=== PATIENT | male | born 1985 | race Caucasian/White ===

== ENCOUNTER 2020-03-06 00:41 | Emergency (ER) | payer OTHER, SELFPAY ==
--- NOTE | ~2020-03-06 | CT_ITS ---
EXAMINATION: CT abdomen pelvis w con DATE: 03/06/2020 01:37 INDICATION: Right lower quadrant abdominal pain, abdominal guarding TECHNIQUE: Computed tomography (CT) of the abdomen and pelvis was performed with 100 cc Omnipaque 350 intravenous contrast. Automated exposure control and iterative reconstruction technique were employe d. Exam dose: 402.52 mGy-cm total exam DLP. COMPARISON: None. FINDINGS: The lung bases are clear. Normal heart size. No pericardial or pleural effusion. The liver, gallbladder, bile ducts, spleen, pancreas, pancreatic duct and adrenal glands as well as k idneys appear normal. Normal caliber of the abdominal aorta. No intraperitoneal or retroperitoneal or pelvic mass lesion or adenopathy or ascites. Normal appendix. No bowel obstruction or intraperitonea l free air. Small fat-containing a buckle hernia. A transitional lumbosacral vertebra is noted. There is mild retrolisthesis at L4-5. IMPRESSION: Normal appendix Reviewed, dictated and finalized at [facility]. with 100 cc Omnipaque 350 Reviewed, dictated and finalized at [facility]. IMPRESSION: Normal appendix
--- NOTE | 2020-03-06 00:45 | ED.ABDPAIN ---
HPI - Abdominal Pain General Chief Complaint: Abdominal Pain Stated Complaint: RLQ PAIN Time Seen by Provider: 03/06/20 00:43 Source: patient and RN notes reviewed Mode of arrival: other Limitations: no limitations History of Present Illness HPI narrative: Pt is a 34 y/o male who presents to the ED with c/o severe RLQ abdominal pain that began 45 minutes ago after getting home from work. 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 Pt states that he feels as if his abdomen is going to explode. Pt is taking Cephalexin. Pt denies any alleviating factors. Pt also reports dysuria, left testicular pain, penile pain, and urinary retention, but denies hematuria, fever, and vomiting. MD elicited complaint: abdominal pain Pertinent past history: none Onset (ago): minute(s) (45) Pain Consistency: constant Location: RLQ Severity: severe Radiation: none Migration to: no migration Relieving factors: nothing Associated symptoms: dysuria and other (left testicular pain, penile pain, urinary retention) Related Data Allergies Allergy/AdvReac Type Severity Reaction Status Date / Time No Known Allergies Allergy Mild Verified 11/11/11 07:23 Review of Systems Review of Systems: Narrative: CONSTITUTIONAL: Denies fever. HEENT: Denies congestion CV: Denies chest pain RESP: Denies cough,dyspnea GASTROINTESTINAL: Reports RLQ abdominal pain. Denies vomiting. GENITOURINARY: Denies dysuria, left testicular pain, penile pain, and urinary retention. Also denies hematuria. Denies penile discharge. EXTREMIES: Denies injury or arthralgia SKIN: Denies rash All systems reviewed & are unremarkable except as noted in HPI and below PMFSH Past Medical History Medical History (Updated 03/06/20 @ 02:35 by Emily Chappell MD) Depression Seizures as child Surgical History Surgical History (Updated 03/06/20 @ 00:46 by Bibi Castillo) Surgical history unknown Social History Social History (Updated 03/06/20 @ 00:46 by Bibi Castillo) Smoking packs per day: 1 Smoking cigarettes per day: 20.0 Smoking status: Current every day smoker Tobacco type: cigarettes Gender identity (if verbalized by the patient): Male Exam Narrative: Exam Narrative: CONSTITUTIONAL: Awake, alert, conversant, tearful, screaming HEAD: Normocephalic, atraumatic. EYES: EOMI, conjunctiva clear ENT: Nares patent. Mucous membranes moist. NECK: Full range of motion RESPIRATORY: No respiratory distress, speaking in full sentences, no tachypnea HEART: Tachycardia. ABDOMEN: Non distended, severe RLQ abdominal tenderness, no rigid, guarding GENITOURINARY: No testicular edema or erythema. No testicular tenderness. Circumcised. EXTREMITIES: Normal range of motion. No edema SKIN: Warm, dry, no rash. NEUROLOGIC: No focal deficits. Alert and oriented x3. Course Vital Signs Vital signs: Vital Signs Temperature 36.6 C 03/06/20 00:48 Pulse Rate 120 H 03/06/20 00:48 Respiratory Rate 18 03/06/20 00:48 Blood Pressure 141/86 H 03/06/20 00:48 Pulse Oximetry 100 03/06/20 00:48 Temperature 36.6 C 03/06/20 00:48 Pulse Rate 120 H 03/06/20 00:48 Respiratory Rate 18 03/06/20 00:48 Blood Pressure 141/86 H 03/06/20 00:48 Pulse Oximetry 100 03/06/20 00:48 MDM - Abdominal Pain MDM Narrative Medical decision making narrative: Patient presented to the emergency department for evaluation of abdominal pain. At the time of initial assessment, patient is tachycardic, uncomfortable appearing, has right lower quadrant tenderness with guarding. No testicular pain, tenderness, no penile pain or discharge. No lesions appreciated on exam. Patient is very hyper analgesic, he seems very sensitive, does report he has issues with opiate abuse and does take Suboxone. Patient was given IV pain medication as he states he does not have a current pain contract. Laboratory results show a leukocytosis, no acute kidney injury or electrolyte abnormality.
[2020-03-06 00:48] VITALS: BP 141/86; PULSE 120; RESP 18; TEMP 36.6; O2SAT 100
[2020-03-06] MEDS: SODIUM CHLORIDE 0.9% IV 1,000 ML 999 ML IV CONT (00:59)
[2020-03-06] MEDS: ONDANSETRON INJ 4 MG/2 ML VIAL IV PUSH (01:00)
[2020-03-06] MEDS: HYDROMORPHONE HCL 1 MG/ML INJ 0.5 MG IV PUSH (01:00)
[2020-03-06 01:11] LABS: Basophils Absolute Auto 0.2 K/mm3 (0.0-0.1); Basophils Percent Auto 1.2 % (0.2-1.2); Eosinophils Absolute Auto 1.3 K/mm3 (0-0.3); Eosinophils Percent Auto 8.9 % (0-4.4); Hematocrit 45.9 % (42.0-52.0); Hemoglobin 15.6 g/dL (14.0-18.0); Immature Granulocyte Absolute 0.04 K/mm3 (0.00-0.031); Immature Granulocyte Percent A 0.3 % (0-0.5); Lymphocytes Absolute Auto 3.91 K/mm3 (0.9-3.2); Lymphocytes Percent Auto 26.9 % (18.3-44.2); Mean Corpuscular Hemoglobin 29.2 pg (26-34); Monocytes Absolute Auto 1.4 K/mm3 (0.1-0.6); Monocytes Percent Auto 9.6 % (2.6-8.5); Neutrophils Absolute Auto 7.7 K/mm3 (1.3-6.7); Neutrophils Percent Auto 53.1 % (45.5-73.1); Platelet Count Result 355 k/mm3 (150-375); Red Blood Count 5.34 M/mm3 (4.6-6.20); Red Cell Distribution Width 12.2 % (11.5-14.5); White Blood Count 14.5 K/mm3 (4.5-10.0)
[2020-03-06 01:18] LABS: Alanine Aminotransferase 91 U/L (4-50); Albumin Level 4.5 g/dL (3.5-5.1); Alkaline Phosphatase 105 U/L (38-126); Aspartate Amino Transferase 70 U/L (17-59); Bilirubin,Total 0.4 mg/dL (0.2-1.3); Blood Urea Nitrogen 15 mg/dL (9-20); Calcium 9.6 mg/dL (8.4-10.2); Carbon Dioxide 26 mmol/L (22-30); Chloride 103 mmol/L (98-107); Estimated Glomerular Filt Rate > 60; Glucose 104 mg/dL (75-110); Potassium 4.1 mmol/L (3.4-5.0); Sodium 139 mmol/L (137-145)
--- NOTE | 2020-03-06 02:00 | PC.NURSE ---
Patient in bathroom with attempting to have bowel movement.
[2020-03-06] MEDS: HYDROMORPHONE HCL 1 MG/ML INJ IV PUSH (02:01)
--- NOTE | 2020-03-06 02:31 | PC.NURSE ---
Patient still in bathroom. Dr Chappell in room attempting to talk to patient. Patient refusing to leave bathroom at this time despite not having bowel movement. Patient still stating he cannot provide urine. Patient naked and pulled out his IV. Refusing to get out of bathroom to be cleaned up. Patient spinning in circles saying that his poop is twisting his body. Patient aox4, aware of care plan.
--- NOTE | 2020-03-06 02:46 | PC.NURSE ---
Patient and given discharge instructions by Dr Chappell. Patient still refusing to come out of bathroom. Patient remains naked, standing with one foot on toilet and cupping his scrotum. at patients side. Patient stating, I'm almost done, it's coming.
--- NOTE | 2020-03-06 02:59 | PC.NURSE ---
Patient's given discharge instructions and prescription. Patient still in bathroom refusing to get dressed or come out of bathroom. Repeatedly turning in circles and stating, It's coming I promise.
--- NOTE | 2020-03-06 03:36 | PC.NURSE ---
Patient and ambulatory out of ED. Dr Chappell spoke with patient again prior to leaving.
[2020-03-06 03:37] VITALS: BP 154/88; PULSE 87; RESP 18; O2SAT 99
== END 2020-03-06 03:38 | disposition home or self-care (01) ==
PROVIDERS: Emergency Provider Emergency Medicine
DX: K59.03 Drug induced constipation (principal); T50.7X5A Adverse effect of analeptics and opioid receptor antagonists, initial encounter; F17.210 Nicotine dependence, cigarettes, uncomplicated
CPT/HCPCS: 36415; 74177; 80053; 85025; 96361; 96374; 96375; 96376; 99284; J0131; J1170; J2405; J3010; J7030; Q9967

== ENCOUNTER 2020-03-10 20:38 | Emergency (ER) | payer OTHER, SELFPAY ==
--- NOTE | ~2020-03-10 | XR_ITS ---
EXAMINATION: XR abdomen obstructive series DATE: 03/10/2020 21:21 INDICATION: Upper abdominal pain. Constipation. TECHNIQUE: Supine and upright views of the abdomen. FINDINGS: CT dated 03/06/2020 The visualized lung parenchyma is normal.. There is a bowel gas pattern. Gas and stool are seen throu ghout the colon to the level of the rectum. There is no free air. IMPRESSION: 1. No acute abdominal abnormality. Reviewed, dictated and finalized at [facility].
[2020-03-10 20:43] VITALS: BP 114/49; PULSE 111; RESP 22; TEMP 36.6; O2SAT 100
[2020-03-10] MEDS: BELLADONNA ALK/PHENOB ELIX 10 ML, MAG HYDROX/ALUMINUM HYD/SIMETH 30 ML, LIDOCAINE HCL 2... PO (21:31)
[2020-03-10] MEDS: LACTATED RINGERS 1,000 ML 999 ML IV CONT ×2 (21:31→22:54)
[2020-03-10] MEDS: HALOPERIDOL LACTATE 5 MG/ML VIAL 10 MG IV PUSH (21:32)
[2020-03-10 21:41] LABS: Basophils Absolute Auto 0.1 K/mm3 (0.0-0.1); Basophils Percent Auto 0.8 % (0.2-1.2); Eosinophils Percent Auto 8.2 % (0-4.4); Hematocrit 44.1 % (42.0-52.0); Hemoglobin 14.8 g/dL (14.0-18.0); Immature Granulocyte Absolute 0.04 K/mm3 (0.00-0.031); Immature Granulocyte Percent A 0.3 % (0-0.5); Lymphocytes Absolute Auto 2.46 K/mm3 (0.9-3.2); Lymphocytes Percent Auto 20.4 % (18.3-44.2); Mean Corpuscular HGB Conc 33.6 g/dl (32-36); Mean Corpuscular Hemoglobin 29.1 pg (26-34); Mean Corpuscular Volume 86.8 fl (80-100); Mean Platelet Volume 9.1 fl (7.4-10.4); Monocytes Percent Auto 8.3 % (2.6-8.5); Neutrophils Absolute Auto 7.5 K/mm3 (1.3-6.7); Platelet Count Result 326 k/mm3 (150-375); Red Blood Count 5.08 M/mm3 (4.6-6.20); Red Cell Distribution Width 12.1 % (11.5-14.5); White Blood Count 12.1 K/mm3 (4.5-10.0)
[2020-03-10 21:53] LABS: Alanine Aminotransferase 74 U/L (4-50); Albumin Level 4.2 g/dL (3.5-5.1); Alkaline Phosphatase 86 U/L (38-126); Aspartate Amino Transferase 66 U/L (17-59); Bilirubin,Total 0.8 mg/dL (0.2-1.3); Blood Urea Nitrogen 12 mg/dL (9-20); Calcium 9.4 mg/dL (8.4-10.2); Carbon Dioxide 27 mmol/L (22-30); Chloride 102 mmol/L (98-107); Estimated CRCL calculation 71 ml/min; Estimated Glomerular Filt Rate > 60; Glucose 96 mg/dL (75-110); Lipase 47 U/L (23-300); Potassium 4.2 mmol/L (3.4-5.0); Sodium 137 mmol/L (137-145)
--- NOTE | 2020-03-10 22:11 | ED.ABDPAIN ---
HPI - Abdominal Pain General Chief Complaint: Abdominal Pain Stated Complaint: abd pain, constipated Time Seen by Provider: 03/10/20 20:43 Source: patient and family History of Present Illness HPI narrative: 34 m here 3 days ago and w/u including CT was unremarkable apart from wbc 14 some pretty weird behaviors noted in the chart tonight he returns with essentially the same complaints which seem to have been exacerbated after taking mag citrate and having a lesser stool than he had hoped for also c/o decreased urination smokes 1 ppd, states little etoh, and on suboxone since august elicited complaint: abdominal pain Pertinent past history: constipation Related Data Home Medications Medication Instructions Recorded Confirmed buprenorphine-naloxone film BID 03/10/20 Allergies Allergy/AdvReac Type Severity Reaction Status Date / Time No Known Allergies Allergy Mild Verified 03/10/20 21:18 Review of Systems Review of Systems: All systems reviewed & are unremarkable except as noted in HPI and below Constitutional: Constitutional: Reports chills, Denies fever(s) and Denies weakness Cardiovascular: Cardiovascular: Denies chest pain Respiratory: Respiratory: Denies cough and Denies dyspnea Gastrointestinal: Gastrointestinal: Reports as per HPI Genitourinary: Genitourinary: Denies hematuria, Denies dysuria and Denies urinary frequency Musculoskeletal: Musculoskeletal: Reports myalgias Neurologic: Comments: tremulous PMFSH Past Medical History Medical History Depression Seizures as child Surgical History Surgical History Surgical history unknown Social History Social History Smoking packs per day: 1 Smoking cigarettes per day: 20.0 Smoking status: Current every day smoker Tobacco type: cigarettes Gender identity (if verbalized by the patient): Male Exam Const: General: alert Orientation/consciousness: patient oriented x3 Other: appears anxious and restless HENMT: Mouth: Yes moist mucous membranes Eyes: Conjunctivae: conjunctivae normal EOM: EOMs intact bilaterally Resp: Effort & Inspection: normal respiratory effort Auscultation: clear to auscultation bilaterally Cardio: Rate: regular rate Rhythm: regular rhythm GI: Auscultation: normal bowel sounds Other: abdomen is somewhat tender everywhere, from bilateral inguinal regions to l flank to epigastric and RUQ, very hypersensitive on exam rectal, no impaction or actually stool of any sort, prostate unremarkable : General: Yes CVA tenderness Skin: General skin exam: normal color Neuro: General: moves all extremities and no focal motor deficits Extrem: General: normal to inspection Psych: Affect: Anxious affect present Course Course Emergency Course: some improvement lab, f/u plain films pretty unremarkable Vital Signs Vital signs: Vital Signs Temperature 36.6 C 03/10/20 20:43 Pulse Rate 111 H 03/10/20 20:43 Respiratory Rate 22 H 03/10/20 20:43 Blood Pressure 114/49 L 03/10/20 20:43 Pulse Oximetry 100 03/10/20 20:43 Temperature 36.6 C 03/10/20 20:43 Pulse Rate 86 03/10/20 22:57 Respiratory Rate 14 03/10/20 22:57 Blood Pressure 126/75 03/10/20 22:57 Pulse Oximetry 98 03/10/20 22:57 MDM - Abdominal Pain Lab Data Result diagrams: 03/10/20 21:35 03/10/20 21:35 Labs: Lab Results 03/10/20 03/10/20 03/10/20 Range/Units 21:35 21:35 21:35 WBC 12.1 H (4.5-10.0) K/mm3 RBC 5.08 (4.6-6.20) M/mm3 Hgb 14.8 (14.0-18.0) g/dL Hct 44.1 (42.0-52.0) % MCV 86.8 (80-100) fl MCH 29.1 (26-34) pg MCHC 33.6 (32-36) g/dl RDW 12.1 (11.5-14.5) % Plt Count 326 (150-375) k/mm3 MPV 9.1 (7.4-10.4) fl Immature Gran % (Auto) 0.3 (
[2020-03-10 22:57] VITALS: BP 126/75; PULSE 86; RESP 14; O2SAT 98
[2020-03-10] MEDS: METHYLNALTREXONE 12 MG/0.6 ML VIAL SUB-Q (22:57)
[2020-03-10 23:13] LABS: Add Urine Microscopic? YES; Appearance Urine Clear (Clear); Bilirubin Urine Negative (Negative); Blood Urine Negative (Negative); Color Urine Yellow (Yellow); Glucose Urine UA Negative (Negative); Ketones Urine Negative (Negative); Leukocyte Esterase Ur Negative LEU/UL (Negative); Mucus Urine Few /lpf; Nitrate Urine Negative (Negative); Protein Urine Negative (Negative); Specific Grav Ur 1.015 (1.001-1.035); WBC Urine 0-3 /hpf
[2020-03-10 23:15] LABS: Creatine Kinase 177 U/L (55-170)
[2020-03-10 23:34] LABS: Barbiturate Screen Urine Negative (Negative); Benzodiazepines Screen Urine Negative (Negative)
[2020-03-10 23:44] LABS: Cannabinoid Screen Urine Negative (Negative); Cocaine Screen Urine Negative (Negative); Methadone Screen Urine Negative (Negative); Opiate Screen Urine Negative (Negative); Phencyclidine Screen Urine Negative (Negative)
[2020-03-10 23:59] LABS: Amphetamine Screen Urine Positive (Negative)
[2020-03-11 01:25] VITALS: BP 139/88; PULSE 74; RESP 16; O2SAT 99
== END 2020-03-11 00:50 | disposition home or self-care (01) ==
PROVIDERS: Emergency Provider Emergency Medicine
DX: R10.9 Unspecified abdominal pain (principal); F17.210 Nicotine dependence, cigarettes, uncomplicated; F32.9 Major depressive disorder, single episode, unspecified
CPT/HCPCS: 36415; 74019; 80053; 80307; 81001; 82550; 83690; 85025; 96361; 96372; 96374; 99284; A9270; J1630; J2212; J7120

== ENCOUNTER 2020-12-01 16:52 | Emergency (ER) | payer OTHER, SELFPAY ==
--- NOTE | ~2020-12-01 | CT_ITS ---
EXAMINATION: CT abdomen pelvis w con INDICATION: Abdominal TECHNIQUE: Computed tomographic images of the abdomen and pelvis were obtained after the administrati on of 100 cc of Omnipaque 350 intravenous contrast. The dose-length product (DLP) was 318.12 mGy-cm. Automated exposure control and iterative reconstruction technique were employed. COMPARISON: 03/06/2020 FINDINGS: The lung bases are clear. The heart size is normal. The liver, spleen, pancreas, gallbladde r, and adrenal glands are normal. The kidneys are unremarkable. No pathologically enlarged abdominal or pelvic lymph nodes are identified. There is no free intraperitoneal gas or evidence of bowel obstr uction. An appendicolith is noted in the tip of the otherwise normal appendix. There is tiny fat-cont aining umbilical hernia. Liquid stool is present throughout much of the colon which could reflect aniyah rrhea. IMPRESSION: 1. No CT correlate for the patient's symptoms. Reviewed, dictated and finalized at location [facility]. [employer]
--- NOTE | 2020-12-01 16:51 | ED.ABDPAIN ---
HPI - Abdominal Pain General Chief Complaint: Abdominal Pain Stated Complaint: ABD PAIN Source: patient and EMS Mode of arrival: EMS Limitations: no limitations History of Present Illness HPI narrative: Patient is a 35-year-old male with a history of former opiate abuse, current methamphetamine abuse, who presents for evaluation of abdominal pain. Patient reports severe central abdominal pain that began 4 hours ago. Patient denies any inciting factors. Reports associated nausea without vomiting. He denies fever or chills. He denies back pain. No ripping or tearing sensation to the flanks. He denies urinary symptoms. Patient states he is no longer taking any Suboxone and states he has been 2 years free from opiates. No diarrhea. No recent food indiscretions. Patient is quite hyperalgesic in the room, quite difficult to obtain history from him. Pt cursing and shouting. He is also reporting pain radiates into his chest. Of note, patient's chart reviewed, previous visits to this ER include to for abdominal pain in which patient had a negative work-up. Patient does report a recent methamphetamine use. Related Data Allergies Allergy/AdvReac Type Severity Reaction Status Date / Time No Known Allergies Allergy Mild Verified 03/10/20 21:18 Review of Systems Review of Systems: Narrative: CONSTITUTIONAL: Denies fever, chills, or sweats. ENT: Reports rhinorrhea CARDIOVASCULAR: Reports radiation of pain into his chest, denies palpitations RESPIRATORY: Denies cough or dyspnea. GASTROINTESTINAL: Reports abdominal pain, nausea and vomiting GENITOURINARY: Denies dysuria or hematuria. SKIN: Denies rash or itching. MUSCULOSKELETAL: Denies back pain, joint pain, or myalgia. NEUROLOGIC: Denies headache, numbness, or weakness. [facility] Past Medical History Medical History (Updated 12/01/20 @ 18:26 by Emily Chappell MD) Depression Methamphetamine abuse Opiate abuse, episodic Seizures as child Surgical History Surgical History Surgical history unknown Social History Social History (Updated 12/01/20 @ 17:12 by Emily Chappell MD) Smoking packs per day: 1 Smoking cigarettes per day: 20.0 Smoking status: Current every day smoker Tobacco type: cigarettes Alcohol intake: unknown Substance use: current Substance use type: amphetamines Other substance usage details: former opiate abuse Gender identity (if verbalized by the patient): Male Exam Narrative: Exam Narrative: GENERAL: Awake, alert, shouting, uncomfortable appearing, tearful HEAD: Normocephalic, atraumatic. EYES: PERRLA and EOMI. ENT: Nares clear, no rhinorrhea or epistaxis. Mucous membranes moist. NECK: Supple. CHEST: Mildly tachypneic HEART:Tachycardic rate, sinus rhythm ABDOMEN:Non distended, tender throughout abdomen with guarding present all four quadrants, unable to truly assess due to degree of pain EXTREMITIES: Normal range of motion. No edema. SKIN: Warm, dry, no rash. NEURO:No focal deficits. Alert and oriented x3 Course Vital Signs Vital signs: Vital Signs Temperature 36.7 C 12/01/20 16:53 Pulse Rate 115 H 12/01/20 16:53 Respiratory Rate 22 H 12/01/20 16:53 Blood Pressure 134/108 H 12/01/20 16:53 Pulse Oximetry 100 12/01/20 16:53 Temperature 36.7 C 12/01/20 16:53 Pulse Rate 86 12/01/20 18:30 Respiratory Rate 20 12/01/20 18:30 Blood Pressure 139/98 H 12/01/20 18:30 Pulse Oximetry 98 12/01/20 18:30 MDM - Abdominal Pain MDM Narrative Medical decision making narrative: Patient initially presented for evaluation of severe abdominal pain radiating into his chest. The time of assessment, patient is quite hysterical. He is tearful and screaming. He is guarding on exam. He is nondistended, nonrigid. Patient with history of abdominal pain such as this for which myself and another physician had seen him in the past. Chest pain does not seem anginal
[2020-12-01 16:53] VITALS: BP 134/108; PULSE 115; RESP 22; TEMP 36.7; O2SAT 100
[2020-12-01 17:00] VITALS: BP 134/108; O2SAT 100
--- NOTE | 2020-12-01 17:10 | ECG_ITS ---
Measurements Intervals [place] Rate: 86 P: 60 DC: 150 QRS: 78 QRSD: 88 T: 52 QT: 358 QTc: 428 Interpretive Statements SINUS RHYTHM BASELINE ARTIFACT- I, II, AVR, AVF NORMAL ECG Electronically Signed On 12-02-2020 7:57:51 [employer] by Abhijit Shultz D.O.
[2020-12-01 17:24] LABS: Basophils Absolute Auto 0.1 K/mm3 (0.0-0.1); Basophils Percent Auto 0.5 % (0.2-1.2); Eosinophils Absolute Auto 0.1 K/mm3 (0-0.3); Eosinophils Percent Auto 0.6 % (0-4.4); Hematocrit 49.1 % (42.0-52.0); Hemoglobin 17.3 g/dL (14.0-18.0); Immature Granulocyte Absolute 0.03 K/mm3 (0.00-0.031); Immature Granulocyte Percent A 0.2 % (0-0.5); Lymphocytes Absolute Auto 2.07 K/mm3 (0.9-3.2); Lymphocytes Percent Auto 16.7 % (18.3-44.2); Mean Corpuscular HGB Conc 35.2 g/dl (32-36); Mean Corpuscular Hemoglobin 29.8 pg (26-34); Mean Corpuscular Volume 84.7 fl (80-100); Mean Platelet Volume 8.9 fl (7.4-10.4); Monocytes Absolute Auto 1.1 K/mm3 (0.1-0.6); Monocytes Percent Auto 8.9 % (2.6-8.5); Neutrophils Absolute Auto 9.1 K/mm3 (1.3-6.7); Neutrophils Percent Auto 73.1 % (45.5-73.1); Platelet Count Result 304 k/mm3 (150-375); Red Cell Distribution Width 11.9 % (11.5-14.5); White Blood Count 12.4 K/mm3 (4.5-10.0)
[2020-12-01] MEDS: SODIUM CHLORIDE 0.9% IV 1,000 ML 999 ML IV CONT (17:24)
[2020-12-01] MEDS: FAMOTIDINE 20 MG/2 ML VIAL IV PUSH (17:25)
[2020-12-01] MEDS: diphenhydrAMINE HCl INJ 50 MG/ML VIAL IV PUSH (17:25)
[2020-12-01] MEDS: HALOPERIDOL LACTATE 5 MG/ML VIAL IV PUSH (17:25)
[2020-12-01] MEDS: ONDANSETRON INJ 4 MG/2 ML VIAL IV PUSH (17:25)
[2020-12-01 17:33] LABS: INR 0.9; Prothrombin Time 12.8 Seconds (11.1-14.7)
[2020-12-01 17:34] LABS: Partial Thromboplastin Time 27.4 SECONDS (22.3-36.8)
[2020-12-01 17:35] LABS: Lactic Acid Reflex 1.9 mmol/L (0.7-2.1)
[2020-12-01 17:46] VITALS: BP 140/99; PULSE 90; RESP 15
[2020-12-01 18:27] LABS: Alanine Aminotransferase 105 U/L (4-50); Albumin Level 3.6 g/dL (3.5-5.1); Alkaline Phosphatase 65 U/L (38-126); Anion Gap 5 mmol/L (8-16); Aspartate Amino Transferase 96 U/L (17-59); Bilirubin,Total 1.1 mg/dL (0.2-1.3); Blood Urea Nitrogen 11 mg/dL (9-20); Calcium 8.5 mg/dL (8.4-10.2); Carbon Dioxide 27 mmol/L (22-30); Chloride 103 mmol/L (98-107); Estimated CRCL calculation 89 ml/min; Estimated Glomerular Filt Rate > 60; Glucose 90 mg/dL (75-110); Lipase 57 U/L (23-300); Potassium 4.3 mmol/L (3.4-5.0); Sodium 135 mmol/L (137-145)
[2020-12-01 18:30] VITALS: BP 139/98; PULSE 86; RESP 20; O2SAT 98
[2020-12-01 18:34] LABS: Troponin I < 0.012 ng/mL (0.000-0.034)
[2020-12-01 19:25] LABS: Add Urine Microscopic? YES; Appearance Urine Clear (Clear); Bacteria Urine Trace /hpf; Bilirubin Urine Negative (Negative); Blood Urine Negative (Negative); Color Urine Yellow (Yellow); Glucose Urine UA Negative (Negative); Ketones Urine Trace mg/dL (Negative); Leukocyte Esterase Ur Negative LEU/UL (Negative); Mucus Urine Rare /lpf; Nitrate Urine Negative (Negative); Protein Urine Negative (Negative); RBC Urine 0-2 /hpf (0-2); Specific Grav Ur 1.018 (1.001-1.035); Squamous Epithelial Cell Urine Rare /hpf (Few); Urobilinogen Urine Negative mg/dL (<2.0); WBC Urine 0-3 /hpf
[2020-12-01 19:34] VITALS: BP 153/95; PULSE 87; RESP 17; O2SAT 98
== END 2020-12-01 19:35 | disposition home or self-care (01) ==
PROVIDERS: Emergency Provider Emergency Medicine
DX: F15.10 Other stimulant abuse, uncomplicated (principal); R10.9 Unspecified abdominal pain; F17.210 Nicotine dependence, cigarettes, uncomplicated
CPT/HCPCS: 36415; 74177; 80053; 81001; 83605; 83690; 84484; 85025; 85610; 85730; 93005; 96361; 96374; 96375; 99284; J1200; J1630; J2405; J7030; Q9967

== ENCOUNTER 2021-06-15 16:19 | Emergency (ER) | payer OTHER, SELFPAY ==
[2021-06-15 16:26] VITALS: BP 136/85; PULSE 100; RESP 16; TEMP 36.6; O2SAT 100
--- NOTE | 2021-06-15 17:27 | ED.WOUNDLAC ---
HPI - Wound/Laceration General Chief Complaint: Wound/Laceration Stated Complaint: Staple Removal Time Seen by Provider: 06/15/21 17:20 Source: patient Mode of arrival: ambulatory Limitations: no limitations History of Present Illness HPI narrative: Roxi is a 35 yo male with no PMH comes [facility] for removal of 3 shania from his right parietal area that have been placed 12 days ago at local ER; wound healed and well approximated Related Data Home Medications Medication Instructions Recorded Confirmed No Home Medications 06/15/21 06/15/21 Allergies Allergy/AdvReac Type Severity Reaction Status Date / Time No Known Allergies Allergy Mild Verified 06/15/21 16:58 Review of Systems Review of Systems: Narrative: CONSTITUTIONAL: Denies fever, chills, sweats. EYES: Denies visual changes, redness, discharge. ENT: Denies rhinorrhea, congestion, sore throat, otalgia. CARDIOVASCULAR: Denies chest pain, palpitations, edema. RESPIRATORY: Denies dyspnea, wheezing, cough GASTROINTESTINAL: Denies abdominal pain, nausea, vomiting, diarrhea. GENITOURINARY: Denies dysuria, hematuria, abnormal discharge SKIN: Denies rash or itching. 3 shania on right parietal area NEUROLOGIC: Denies numbness, or focal weakness. PSYCHIATRIC: Denies anxiety or depression. [facility] Past Medical History Medical History Depression Methamphetamine abuse Opiate abuse, episodic Seizures as child Surgical History Surgical History Surgical history unknown Social History Social History Smoking packs per day: 1 Smoking cigarettes per day: 20.0 Smoking status: Current every day smoker Tobacco type: cigarettes Alcohol intake: unknown Substance use: current Substance use type: amphetamines Other substance usage details: former opiate abuse Gender identity (if verbalized by the patient): Male Comments At time of signature, I agree with nursing past medical, surgical, social and family history. There is no relevant family history pertinent to the presenting complaint. Exam Narrative: Exam Narrative: GENERAL: This is a well-nourished, well-developed patient, in no distress. HEAD: normocephalic, atraumatic. EYES: Sclera clear/white. Vision is grossly intact. EARS: External ears normal, a. Hearing grossly intact. NOSE: External nose normal without nasal discharge, nares without redness, no rhinorrhea. THROAT: Mucous membranes moist, NECK: Neck supple, non-tender CARDIOVASCULAR: Regular rate and rhythm without murmurs, gallops, or rubs. RESPIRATORY: Clear to auscultation. Breath sounds equal bilaterally. No wheezes, rales, or rhonchi. GASTROINTESTINAL: Abdomen soft, SKIN: warm, intact with no suspicious lesions or rash, good texture and turgor. NEURO: awake, alert, and oriented to person, place and time. There were no obvious focal neurologic abnormalities. Steady gait EXTREMITIES: Normal range of motion. BACK: Nontender without deformity Course Course Emergency Course: Patient came to [facility] for removal of shania from his head Staple removal done; directions for aftercare given -follow-up with primary care Vital Signs Vital signs: Vital Signs Temperature 97.8 F 06/15/21 16:26 Pulse Rate 100 06/15/21 16:26 Respiratory Rate 16 06/15/21 16:26 Blood Pressure 136/85 06/15/21 16:26 Pulse Oximetry 100 06/15/21 16:26 Temperature 97.8 F 06/15/21 16:26 Pulse Rate 100 06/15/21 16:26 Respiratory Rate 16 06/15/21 16:26 Blood Pressure 136/85 06/15/21 16:26 Pulse Oximetry 100 06/15/21 16:26 Procedures Other Procedure Procedure 1: Other Procedure: 3 shania removed from right parietal area behind the ear after cleaning with Primaderm. MDM - Wound/Laceration Differential Diagnosis Differential diagno
== END 2021-06-15 17:36 | disposition home or self-care (01) ==
PROVIDERS: Emergency Provider Nurse Practitioner
DX: S01.01XD Laceration without foreign body of scalp, subsequent encounter (principal); X58.XXXD Exposure to other specified factors, subsequent encounter
CPT/HCPCS: 99211; G0463

== ENCOUNTER 2022-03-01 19:04 | Emergency (ER) | payer OTHER, SELFPAY ==
--- NOTE | 2022-03-01 19:08 | ED.SKABFB ---
HPI - Skin/Abscess/Foreign Bdy General Chief complaint: Skin/Abscess/Foreign Body Stated complaint: bites on abd Time Seen by Provider: 03/01/22 19:08 Source: patient Mode of arrival: ambulatory Limitations: no limitations History of Present Illness HPI narrative: 32-year-old male presents with complaint of spider bites to abdomen. Reports that yesterday he was helping a friend clean out a shed and saw multiple spiders did feel a bite but did not think that he was bit that many times. He reports redness, tenderness and pain. Denies fever chills. Has a history of cellulitis. All systems reviewed and negative except as noted above. Related Data Allergies Allergy/AdvReac Type Severity Reaction Status Date / Time No Known Allergies Allergy Mild Verified 03/01/22 19:25 Review of Systems Review of Systems: CONSTITUTIONAL: Denies fever, chills, or sweats. EYES: Denies visual changes, redness, or discharge. ENT: Denies rhinorrhea, congestion, sore throat, or otalgia. CARDIOVASCULAR: Denies chest pain, palpitations, or edema. RESPIRATORY: Denies cough or dyspnea. GASTROINTESTINAL: Denies abdominal pain, nausea, vomiting, or diarrhea. GENITOURINARY: Denies dysuria or hematuria. SKIN: Denies rash or itching. Spider bites to abdomen. MUSCULOSKELETAL: Denies back pain, joint pain, or myalgia. NEUROLOGIC: Denies headache, numbness, or weakness. PSYCHIATRIC: Denies anxiety or depression. All other systems reviewed are negative, except as documented in HPI. [facility] Past Medical History Medical History Depression Methamphetamine abuse Opiate abuse, episodic Seizures as child Surgical History Surgical History Surgical history unknown Social History Social History Smoking packs per day: 1 Smoking cigarettes per day: 20.0 Smoking status: Current every day smoker Tobacco type: cigarettes Alcohol intake: unknown Substance use: current Substance use type: amphetamines Other substance usage details: former opiate abuse Gender identity (if verbalized by the patient): Male Comments At time of signature, agree with nursing past medical, surgical, social and family history. There is no relevant family history pertinent to the presenting complaint. Exam Narrative: GENERAL: This is a well-nourished, well-developed patient, in no apparent distress. HEAD: normocephalic, atraumatic. EYES: PERRL. Sclera clear/white. Vision is grossly intact. EARS: External ears normal NOSE: External nose normal NECK: Neck supple, non-tender without lymphadenopathy, masses or thyromegaly. CARDIOVASCULAR: Regular rate and rhythm without murmurs, gallops, or rubs. SKIN: warm, Dry, intact good texture and turgor. 4 erythematous raised lesions to abdomen. Lesions are warm to touch, no drainage. There is a 1.5 cm lesion, 2 approximate 3 cm lesions and a larger lesion that is 14 cm x 5 cm. There is no fluctuance. There is a scab to the center of each lesion. NEURO: awake, alert, and oriented to person, place and time. There were no obvious focal neurologic abnormalities. EXTREMITIES: Normal range of motion to all extremities. Course Course Level of Care: [facility] Visit Vital Signs Vital signs: Vital Signs Temperature 36.7 C 03/01/22 19:12 Pulse Rate 94 03/01/22 19:12 Respiratory Rate 16 03/01/22 19:12 Blood Pressure 136/94 H 03/01/22 19:12 Pulse Oximetry 98 03/01/22 19:12 Temperature 36.7 C 03/01/22 19:12 Pulse Rate 94 03/01/22 19:12 Respiratory Rate 16 03/01/22 19:12 Blood Pressure 136/94 H 03/01/22 19:12 Pulse Oximetry 98 03/01/22 19:12 Reviewed MDM - Skin/Abscess/Foreign Bdy MDM Narrative Medical decision making narrative: Patient given IM ceftriaxone at urgent care. DC'd with clindamycin for insect bite/cellulitis. Recom
[2022-03-01 19:12] VITALS: BP 136/94; PULSE 94; RESP 16; TEMP 36.7; O2SAT 98
[2022-03-01] MEDS: IBUPROFEN 600 MG TABLET PO (19:36)
[2022-03-01] MEDS: cefTRIAXone 1 GM, LIDOCAINE HCL 1% LOCAL INJ 2.1 ML IM (19:38)
== END 2022-03-01 20:00 | disposition home or self-care (01) ==
PROVIDERS: Emergency Provider Nurse Practitioner Family
DX: S30.861A Insect bite (nonvenomous) of abdominal wall, initial encounter (principal); W57.XXXA Bitten or stung by nonvenomous insect and other nonvenomous arthropods, initial encounter; F17.210 Nicotine dependence, cigarettes, uncomplicated
CPT/HCPCS: 96372; 99213; A9270; G0463; J0696

== ENCOUNTER 2022-12-29 15:59 | Emergency (ER) | payer OTHER, SELFPAY ==
[2022-12-29 16:18] VITALS: BP 152/114; PULSE 101; RESP 16; TEMP 36.7; O2SAT 99
--- NOTE | 2022-12-29 16:41 | ED.SKABFB ---
HPI - Skin/Abscess/Foreign Bdy General Chief complaint: Skin/Abscess/Foreign Body Stated complaint: a cut on lt hand is inf Time Seen by Provider: 12/29/22 16:41 Source: patient, RN notes reviewed and old records reviewed Mode of arrival: ambulatory Limitations: no limitations History of Present Illness HPI narrative: 37-year-old male presents to the [facility] stating that he cut his left hand and is now infected Patient reports that he has been doing yd work, cut himself. Reports the erythema and swelling started yesterday. Drainage noted from the dorsal aspect of the left hand. Decreased range of motion of the fingers due to swelling. area is hot to touch. Reports being up-to-date with his tetanus 2 years ago Reports taking 5 doxycycline in the last 24 hours that he had ?left over. ? Tetanus up to date: yes Related Data Allergies Allergy/AdvReac Type Severity Reaction Status Date / Time No Known Allergies Allergy Mild Verified 03/01/22 19:25 Review of Systems Review of Systems: All systems reviewed & are unremarkable except as noted in HPI and below Constitutional: Constitutional: Reports no additional constitutional complaints Eyes: Eyes: Reports no additional eye complaints ENT: Reports system reviewed and no additional complaints, except as documented Cardiovascular: Cardiovascular: Reports no additional cardiovascular complaints, Denies chest pain and Denies dyspnea Respiratory: Respiratory: Reports no additional respiratory complaints, Denies chest congestion, Denies cough and Denies dyspnea Gastrointestinal: Gastrointestinal: Reports no additional gastrointestinal complaints, Denies abdominal pain, Denies nausea and Denies vomiting Musculoskeletal: Musculoskeletal: Reports as per HPI, Reports arthralgias (Left wrist) and Reports joint swelling (Left wrist) Integumentary/Breasts: Skin/Breast: Reports as per HPI and Reports erythema (Left hand, wrist, forearm) Neurologic: Reports system reviewed and no additional complaints, except as documented Psychiatric: Psychiatric: Reports no additional psychiatric complaints Allergic/Immunologic: Allergic/Immunologic: Reports no additional allergic/immunologic complaints PMFSH Past Medical History Medical History Depression Methamphetamine abuse Opiate abuse, episodic Seizures as child Surgical History Surgical History Surgical history unknown Social History Social History Smoking packs per day: 1 Smoking cigarettes per day: 20.0 Smoking status: Current every day smoker Tobacco type: cigarettes Alcohol intake: unknown Substance use: current Substance use type: amphetamines Other substance usage details: former opiate abuse Gender identity (if verbalized by the patient): Male Comments At the time of my signature, I reviewed and agree with the nursing past medical, surgical, social, and family history. There is no relevant family history pertinent to the patient complaint. Exam Const: General: cooperative, no acute distress, well developed, alert, ill appearing acutely and chronically, poor hygiene, uncomfortable and well nourished Nutritional Appearance: well nourished Orientation/consciousness: patient oriented x3 Limitations: no limitations HENMT: Head: normal to inspection Ears: hearing grossly normal bilaterally and external ears normal Face/Nose/Sinus: Normal external nose present, Normal nares present, Normal nasal mucous membranes and turbinates present and normal facial exam Face and sinus: normal facial exam Mouth: Yes lip normal Eyes: General: appearance normal, both eyes and all related structures Alignment and Position: alignment normal Periorbital: periorbital findings normal Conjunctivae: conjunctivae normal Pupils: Equal, round and reactive pupils present
== END 2022-12-29 17:38 | disposition left against medical advice (07) ==
PROVIDERS: Emergency Provider Nurse Practitioner
DX: L03.114 Cellulitis of left upper limb (principal); L02.512 Cutaneous abscess of left hand; F17.210 Nicotine dependence, cigarettes, uncomplicated
CPT/HCPCS: 99211; G0463

== ENCOUNTER 2022-12-30 00:56 | Emergency (ER) | payer OTHER, SELFPAY ==
--- NOTE | ~2022-12-30 | XR_ITS ---
XR hand LT min 3V 12/30/2022 04:31 Indication: Redness and swelling Procedure: 3 views left hand Comparison: No prior studies for comparison. Findings: No fracture, subluxation or dislocation. Moderate degenerative changes of the triscaphe saray nt. No focal soft tissue abnormality. No foreign bodies. No erosive changes. Mild osteoarthritis of t he second and third distal interphalangeal joints. Impression: 1: No acute bone or joint abnormality. 2: Polyarticular osteoarthritis. Reviewed, dictated and finalized at location A. ER'S EDUCATION INSTRUCTOR Impression: 1: No acute bone or joint abnormality. 2: Polyarticular osteoarthritis.
[2022-12-30 01:04] VITALS: BP 149/84; PULSE 110; RESP 18; TEMP 36.6; O2SAT 97
[2022-12-30 02:03] VITALS: PULSE 95; RESP 16; O2SAT 100
--- NOTE | 2022-12-30 03:02 | ED.WOUNDLAC ---
HPI - Wound/Laceration General Chief Complaint: Wound/Laceration <Britany Richter PA-C - Last Filed: 12/30/22 04:30> Stated Complaint: left hand swelling, redness, drainage <NICK Bueno Last Filed: 12/30/22 04:30> Time Seen by Provider: 12/30/22 02:45 <NICK Bueno Last Filed: 12/30/22 04:30> Source: patient <NICK Bueno Last Filed: 12/30/22 04:30> Mode of arrival: ambulatory <NICK Bueno Last Filed: 12/30/22 04:30> Limitations: no limitations <NICK Bueno Last Filed: 12/30/22 04:30> History of Present Illness HPI narrative: This is a 37 year old male that presents to the ER for left hand redness and swelling ongoing over the last 2 days. Reports he was cleaning up some bushes and sustained several lacerations to the arms about a week ago. Over the last couple of days he has had worsening redness and swelling in his left hand. He does have a wound on the dorsal aspect of the wrist that has had some drainage. Denies fevers or numbness. <Britany Richter PA-C - Last Filed: 12/30/22 04:30> Related Data Allergies/Adverse Reactions: Allergies Allergy/AdvReac Type Severity Reaction Status Date / Time No Known Allergies Allergy Mild Verified 12/30/22 00:56 <NICK Bueno Last Filed: 12/30/22 04:30> Review of Systems Review of Systems: CONSTITUTIONAL: Denies fever SKIN: Denies rash MUSCULOSKELETAL: Reports joint pain, and myalgia. NEUROLOGIC: Denies numbness <NICK Bueno Last Filed: 12/30/22 04:30> All systems reviewed & are unremarkable except as noted in HPI and below <NICK Bueno Last Filed: 12/30/22 04:30> PMFSH Past Medical History Medical History: Medical History Depression Methamphetamine abuse Opiate abuse, episodic Seizures as child <Britany Richter PA-C - Last Filed: 12/30/22 04:30> Surgical History Surgical History: Surgical History Surgical history unknown <NICK Bueno Last Filed: 12/30/22 04:30> Social History Social History: Social History Smoking packs per day: 1 Smoking cigarettes per day: 20.0 Smoking status: Current every day smoker Tobacco type: cigarettes Alcohol intake: unknown Substance use: current Substance use type: amphetamines Other substance usage details: former opiate abuse Gender identity (if verbalized by the patient): Male <Britany Richter PA-C - Last Filed: 12/30/22 04:30> Exam Narrative: GENERAL: Well-appearing, well-nourished, and in no acute distress. HEAD: Normocephalic, atraumatic. EYES: EOMI. CHEST: Clear to auscultation. No respiratory distress. No wheezes rales or rhonchi HEART: Regular rate and rhythm. No murmur heard. Normal peripheral pulses. EXTREMITIES: Normal range of motion. Diffuse erythema and edema of the left hand with some extension into the forearm. There is a small wound present on the dorsal aspect of the wrist that has a mild amount of drainage SKIN: Warm, dry, no rash. NEURO: No focal deficits. Alert and oriented x3. PSYCH: Normal mood and affect <Britany Richter PA-C - Last Filed: 12/30/22 04:30> Course Course Emergency Course: Patient updated as he had been previously accepted at [facility] after his visit at urgent care. I spoke with the transfer center who reports they had canceled the transfer because the patient had eloped from the urgent care. Spoke with patient about the importance of him staying in the hospital for further IV antibiotics and evaluation by a hand surgeon. He refused at this time. He will be discharged with oral antibiotics. He was instructed that he may not get better and should return at any time for further management <BHARAT BuenoC - Last File
[2022-12-30 03:49] LABS: Basophils Absolute Auto 0.1 K/mm3 (0.0-0.1); Basophils Percent Auto 0.4 % (0.2-1.2); Eosinophils Absolute Auto 0.3 K/mm3 (0-0.3); Eosinophils Percent Auto 1.9 % (0-4.4); Hematocrit 36.2 % (42.0-52.0); Hemoglobin 12.3 g/dL (14.0-18.0); Immature Granulocyte Absolute 0.05 K/mm3 (0.00-0.031); Immature Granulocyte Percent A 0.4 % (0-0.5); Lymphocytes Absolute Auto 2.09 K/mm3 (0.9-3.2); Lymphocytes Percent Auto 15.7 % (18.3-44.2); Mean Corpuscular Hemoglobin 28.9 pg (26-34); Mean Platelet Volume 8.9 fl (7.4-10.4); Monocytes Absolute Auto 1.2 K/mm3 (0.1-0.6); Monocytes Percent Auto 8.7 % (2.6-8.5); Neutrophils Absolute Auto 9.7 K/mm3 (1.3-6.7); Neutrophils Percent Auto 72.9 % (45.5-73.1); Platelet Count Result 317 k/mm3 (150-375); Red Blood Count 4.26 M/mm3 (4.6-6.20); Red Cell Distribution Width 12.4 % (11.5-14.5); White Blood Count 13.3 K/mm3 (4.5-10.0)
[2022-12-30 03:57] LABS: Lactic Acid Reflex 0.6 mmol/L (0.7-2.0)
[2022-12-30 04:01] LABS: Anion Gap 5 mmol/L (8-16); Blood Urea Nitrogen 12 mg/dL (9-20); Calcium 8.4 mg/dL (8.4-10.2); Carbon Dioxide 28 mmol/L (22-30); Chloride 105 mmol/L (98-107); Estimated CRCL calculation 110 ml/min; Estimated Glomerular Filt Rate > 60; Glucose 113 mg/dL (65-110); Potassium 3.8 mmol/L (3.4-5.0); Sodium 138 mmol/L (137-145)
[2022-12-30 04:11] LABS: CRP 13.9 mg/dL (<1.0)
[2022-12-30 04:23] LABS: Erythrocyte Sedimentation Rate 88 mm/hr (0-20)
[2022-12-30 05:52] VITALS: BP 115/88; PULSE 76; RESP 16; O2SAT 98
[2022-12-30] MEDS: CLINDAMYCIN 600 MG/D5W 50 ML 600 MG/50 ML PIGGYBACK 100 MG IVPB (06:11)
== END 2022-12-30 06:38 | disposition home or self-care (01) ==
PROVIDERS: Emergency Provider Physician Assistant
DX: L03.114 Cellulitis of left upper limb (principal); F17.210 Nicotine dependence, cigarettes, uncomplicated
CPT/HCPCS: 36415; 73130; 80048; 83605; 85025; 85652; 86140; 87040; 87070; 87147; 87205; 96365; 96367; 99284; J3370